=== PATIENT | male | born 1965 | race Hispanic/Latino ===

== ENCOUNTER 2021-06-22 12:13 | Inpatient (IN) | payer OTHER ==
--- NOTE | 2021-06-20 21:00 | NUR ---
Admission and physical assement completed see inteventions. Armenian speaking only, writter able to translate.Patient alert and oriented x 3. Pt currently denies any pain or discomfort, but would like to take robutussin. Denies any further needs.Plan of care reviewed, oriented to room and call light system. Bedside table and call light within reach.
[~2021-06-22] VITALS: Ht 170.2 cm; Wt 79.0 kg
--- NOTE | 2021-06-22 12:20 | NUR ---
TO ROOM FOR TRIAGE
--- NOTE | 2021-06-22 12:46 | NUR ---
PATIENT RESTING IN SEMI LAMA POSTION,BED LOW,CALL GAMING IN REACH
--- NOTE | 2021-06-22 13:20 | NUR ---
noted o2 sats are remaining in low 90's. RT called for ABG.
[2021-06-22 14:36] LABS: HEMATOCRIT 36.6 % (39.0-50.0); HEMOGLOBIN 12.5 g/dl (14.0-18.0); IMMATURE GRANULOCYTES 0.3 % (0.0-5.0); MEAN CELL VOLUME 86.1 fL CALC (80.0-100.0); MEAN CORPUSCULAR HGB 29.4 pG CALC (26.0-32.0); MEAN CORPUSCULAR HGB CONC 34.2 g/dL CAL (32.0-36.0); NEUT# 6.11 thou/uL (1.82-7.42); RED BLOOD COUNT 4.25 mill/uL (4.70-6.10); RED CELL DISTRI WIDTH 12.9 % (11.5-15.5)
[2021-06-22 15:11] LABS: ALBUMIN 3.5 g/dL (3.2-5.0); ALKALINE PHOSPHATASE 50 u/l (38-126); ANION GAP 7 (6-22 (CALC)); BILIRUBIN, TOTAL 0.7 mg/dL (0.0-1.4); BUN 9 mg/dL (9-20); BUN/CREATININE RATIO 19 (12-20 (CALC)); CARBON DIOXIDE 26 mmol/l (22-30); CHLORIDE 100 mmol/l (95-108); CREATININE 0.5 mg/dL (0.7-1.3); GFR > 60 ML/MIN (>=60 (CALC)); GFR FOR AFR.AMER. > 60 ML/MIN (>=60 (CALC)); POTASSIUM 3.5 mmol/l (3.5-5.1); SGOT/AST 159 u/l (17-59); SODIUM 129 mmol/l (137-146); TOTAL PROTEIN 7.5 g/dL (6.3-8.2)
--- NOTE | 2021-06-22 15:11 | NUR ---
PATIENT RESTING QUIETLY.
--- NOTE | 2021-06-22 16:30 | NUR ---
RESTING QUIETLY. CALL GAMING IN REACH
--- NOTE | 2021-06-22 17:30 | NUR ---
AWAITING ADMISSION. CALL GAMING IN REACH.
--- NOTE | 2021-06-22 18:31 | NUR ---
NO C/O. CALL GAMING AVAILABLE. BED IN LOW POSITION.
--- NOTE | 2021-06-22 18:50 | NUR ---
Report received from Elio Bullock RN
--- NOTE | 2021-06-22 19:10 | NUR ---
RECIVED REPORT FROM KYRIE WHITE. ASSUMED CARE OF PATIENT. ANTIBIOTIC COMPLETED. Reassessment of patient completed. No distress noted.
--- NOTE | 2021-06-22 20:04 | NUR ---
Report received from Mark Campbell Rn
--- NOTE | 2021-06-22 20:09 | NUR ---
Admission Note Report Given to: CINDY PULIDO Transported by: Wheelchair X Stretcher Transported with: X Nurse Transporter X Patent IV O2 X Eye Technician Location: ICU X [facility]
--- NOTE | 2021-06-22 21:50 | NUR ---
Patient arrived on floor accompanied by A Tien. Pt has a new IV (20 G LAC) started by transporter. IV antibiotics hung, but never given.
[2021-06-22 21:51] VITALS: BP 141/84
--- NOTE | 2021-06-22 22:28 | NUR ---
antibiotic begin at this time, expected to complete at 2330
[2021-06-23] VITALS: BP 147/85
--- NOTE | 2021-06-23 | NUR ---
Patient resting comfortably on 2L via nasal cannula, reading 96%
[2021-06-23 04:00] VITALS: BP 136/82
[2021-06-23 05:32] LABS: ALBUMIN 3.1 g/dL (3.2-5.0); ALKALINE PHOSPHATASE 46 u/l (38-126); ANION GAP 10 (6-22 (CALC)); BILIRUBIN, TOTAL 0.6 mg/dL (0.0-1.4); BUN 12 mg/dL (9-20); BUN/CREATININE RATIO 27 (12-20 (CALC)); C-REACTIVE PROTEIN 6.3 mg/dL (0-0.9); CARBON DIOXIDE 23 mmol/l (22-30); CHLORIDE 104 mmol/l (95-108); CREATININE 0.5 mg/dL (0.7-1.3); GFR > 60 ML/MIN (>=60 (CALC)); GFR FOR AFR.AMER. > 60 ML/MIN (>=60 (CALC)); SGOT/AST 127 u/l (17-59); SODIUM 132 mmol/l (137-146); TOTAL PROTEIN 6.8 g/dL (6.3-8.2)
--- NOTE | 2021-06-23 05:58 | NUR ---
Patient increased delivery of oxygen to 4L via NC from 2L
[2021-06-23 07:11] LABS: HEMATOCRIT 38.5 % (39.0-50.0); HEMOGLOBIN 12.8 g/dl (14.0-18.0); IMMATURE GRANULOCYTES 0.5 % (0.0-5.0); MEAN CELL VOLUME 87.3 fL CALC (80.0-100.0); MEAN CORPUSCULAR HGB CONC 33.2 g/dL CAL (32.0-36.0); NEUT# 3.31 thou/uL (1.82-7.42); RED BLOOD COUNT 4.41 mill/uL (4.70-6.10); RED CELL DISTRI WIDTH 12.9 % (11.5-15.5)
--- NOTE | 2021-06-23 08:00 | NUR ---
PT SITTING UP IN BED. PT IS MACEDONIAN SPEAKING. PT ALERT AND ORIENTED X4 PT DENIES PAIN OR DISCOMFORT. VS AND ASSESSMENT COMPLETE. PT AMBULATES TO THE BATHROOM WITHOUT ASSISTANCE. LUNGS DIMINISHED. BREATHS EVEN AND UNLABORED. BOWEL SOUNDS ACTIVE. PERIPHERAL PULSES PALPABLE. IV INTACT AND PATENT. PT WILL CONTINUE O2 THERAPY. SAFETY PRECAUTIONS ARE IN PLACE CALL LIGHT WITHIN PT REACH. WILL MONITOR PATIENT CLOSELY
[2021-06-23 12:00] VITALS: BP 119/71
--- NOTE | 2021-06-23 12:00 | NUR ---
PT SLEEPING. NO IMMEDIATE NEEDS AT THIS TIME
[2021-06-23 15:50] VITALS: BP 127/73
--- NOTE | 2021-06-23 17:19 | NUR ---
REPORT GIVEN TO ICU NURSE. ALL QUESTIONS ANSWERED.
--- NOTE | 2021-06-23 17:28 | NUR ---
PT TRANSFERRED TO ICU VIA WHEELCHAIR IN A STABLE CONDITION
[2021-06-23 19:00] VITALS: BP 125/72
--- NOTE | 2021-06-23 20:00 | NUR ---
PATIENT IS SITTING UP IN RECLINER AT THIS TIME WITH O2 OFF-O2 SAT WAS 82% AND O2 REAPPLIED-INCREASED UP TO 10L HIGH FLOW TO GET UP TO 91% SAT. PATIENT IS TONGAN SPEAKING ONLY. REINFORCED WITH PATIENT THE NEED TO LEAVE O2 IN PLACE. EXTENSION TUBING APPLIED TO O2 TUBING. LUNGS ARE CLEAR AT THIS TIME. VS TAKEN AND RECORDED. TELE MONITOR IN PLACE AND READING SR-72 AT TH IS TIME. ROCEPHIN FINISHED AND AZITHRO HUNG VIA LAFT AC SITE. SITE IS HEALTHY AT THIS TIME. PATIENT ON ISOLATION FOR COVID. ENCOURGED USE OF IS Q1H W/A IN REPS OF 10 AND ALSO ENCOURAGED PRONING WHEN POSSIBLE. CALL LIGHT IN REACH. WILL CONT TO [facility].
[2021-06-24] VITALS: BP 116/76
--- NOTE | 2021-06-24 01:00 | NUR ---
PATIENT RESTING IN BED AT THIS TIME WITH O2 VIA NASAL CANNULA IN PLACE AT 6L HIGH FLOW. O2 SAT IS 91& AT THIS TIME. TELE MONITOR IN PLACE-LAST READING SR-65. NO COMPLAINTS AT THIS TIME. CALL LIGHT IN REACH. WILL CONT TO MONITOR.
--- NOTE | 2021-06-24 03:31 | NUR ---
PATIENT RESTING IN BED-O2 SAT ON 6L HIGH FLOW IS ONLY 88%. INCREASED TO O2 12L HIGH FLOW TO MAINTAIN O2 SAT OF 90%. TELE MONITOR IN PLACE. IV SITE TO RAC AND LAC INTACT. HOB IS ELEVATED. CALL LIGHT IN REACH. WILL CONT TO MONITOR.
[2021-06-24 04:00] VITALS: BP 135/75
[2021-06-24 05:30] LABS: HEMOGLOBIN 12.6 g/dl (14.0-18.0); MEAN CELL VOLUME 88.6 fL CALC (80.0-100.0); MEAN CORPUSCULAR HGB 29.4 pG CALC (26.0-32.0); MEAN CORPUSCULAR HGB CONC 33.2 g/dL CAL (32.0-36.0); NEUT# 6.87 thou/uL (1.82-7.42); RED BLOOD COUNT 4.29 mill/uL (4.70-6.10); RED CELL DISTRI WIDTH 12.8 % (11.5-15.5)
[2021-06-24 05:47] LABS: ALKALINE PHOSPHATASE 43 u/l (38-126); ANION GAP 11 (6-22 (CALC)); BILIRUBIN, TOTAL 0.6 mg/dL (0.0-1.4); BUN 20 mg/dL (9-20); BUN/CREATININE RATIO 39 (12-20 (CALC)); CARBON DIOXIDE 22 mmol/l (22-30); CHLORIDE 107 mmol/l (95-108); CREATININE 0.5 mg/dL (0.7-1.3); GFR > 60 ML/MIN (>=60 (CALC)); GFR FOR AFR.AMER. > 60 ML/MIN (>=60 (CALC)); SGOT/AST 85 u/l (17-59); SODIUM 136 mmol/l (137-146); TOTAL PROTEIN 6.6 g/dL (6.3-8.2)
[2021-06-24 06:19] LABS: IMMATURE GRANULOCYTES 0.6 % (0.0-5.0)
[2021-06-24 08:04] VITALS: BP 119/69
--- NOTE | 2021-06-24 08:04 | NUR ---
PT ALERT AND ORIENTED. COVID+ ON 13L OF HF NC. VITALS AND ASSESSMENT COMPLETED. PT S1 AND S2 HEARD UPON ASCULTATION. LUNGS CLEAR/DIMINISHED. BOWELS ACTIVE IN ALL 4 QUADS. PT IV PATENT AND HEALTHY X2. PT SKIN WARM AND DRY. PEDAL PULSES STRONG BILATERALLY. NO PAIN INDICATED.
--- NOTE | 2021-06-24 09:00 | NUR ---
PT IN RECLINER. NO DISTRESS NOTED. CALL LIGHT WITHIN REACH.
--- NOTE | 2021-06-24 11:18 | NUR ---
AT BEDSIDE DISCUSSING POC.
--- NOTE | 2021-06-24 11:21 | NUR ---
PT UP IN CHAIR. NO DISTRESS NOTED. CALL LIGHT WITHIN REACH.
[2021-06-24 12:29] VITALS: BP 116/72
--- NOTE | 2021-06-24 14:23 | NUR ---
PT UP IN CHAIR. NO DISTRESS NOTED. CALL LIGHT WITHIN REACH.
--- NOTE | 2021-06-24 15:00 | NUR ---
TITRATED PT DOWN TO 12L OF O2. PTS O2 AT 95-96%. NO DISTRESS NOTED. CALL LIGHT WITHIN REACH.
--- NOTE | 2021-06-24 15:32 | NUR ---
PT IN CHAIR. ASKED IF HE WANTED TO GET IN BED AND HE DENIED. NO DISTRESS NOTED. CALL LIGHT WITHIN REACH.
[2021-06-24 16:55] VITALS: BP 130/78
[2021-06-24 19:00] VITALS: BP 123/64
--- NOTE | 2021-06-24 19:47 | NUR ---
PATIENT RESTING IN CHAIR AT THIS ITME-AWAKE ALERT AND ORIENTEDX3. O2 VIA NC HIGH FLOW 12L IN PLACE. O2 SAT IS 95%. DECREASED HIGH FLOW TO 10 AND WILL CONT TO MONITOR. LUNGS ARE CLEAR BUT DIMINISHED. TELE MONITOR IN PLACE-LAST READING SR-70'S. SALINE LOCKS INTACT TO BOTH LEFT AND RIGHT AC'S. UP TO BR TO VOID-DENIES ANY DIFFICULTY. ABD IS SOFT WITH BS+. NO PERIPHERAL EDEMA. PULSES ARE PALPABLE. ON ISOLATION FOR COVID. ENCOURAGED USE OF IS Q1H WHILE AWAKE IN REPS OF 10. ENCOURAGED PRONING WHEN POSSIBLE. SAFETY PRECAUTIONS REINFORCED. CALL LIGHT IN REACH, WILL CONT TO MONITOR.
[2021-06-25] VITALS: BP 123/73
--- NOTE | 2021-06-25 00:57 | NUR ---
PATIENT REMAINS UP IN THE CHAIR WITH O2 VIA NC IN PLACE AT 10L HIGHFLOW. O2 SAT IS 91% AT THIS TIME. PATIENT DID FINALLY EAT ALL OF HIS DINNER. TELE MONITOR IN PLACE WITH LAST READING BEING SR-64. PATIENT WITH NO COMPLAINTS AT THIS TIME. CALL LIGHT IN REACH. WILL CONT TO MONITOR.
--- NOTE | 2021-06-25 02:22 | NUR ---
PATIENT RESTING IN BED AT THIS TIME WITH O2 VIA NASAL CANNULA IN PLACE AT 10L HIGH FLOW. O2 SAT IS 94% AT THIS TIME. WILL CONT TO MONITOR.
[2021-06-25 04:00] VITALS: BP 146/73
--- NOTE | 2021-06-25 04:47 | NUR ---
PATIENT RESTING IN BED AT TH IS TIME WITH O2 NC IN PLACE AT 10L HIGH FLOW-O2 SAT IS 93% AT THIS TIME. TELE MONITOR IN PLACE WITH LAST READING SR-82. CALL LIGHT IN REACH. WILL CONT TO MONITOR.
[2021-06-25 05:20] LABS: HEMATOCRIT 39.6 % (39.0-50.0); HEMOGLOBIN 12.9 g/dl (14.0-18.0); IMMATURE GRANULOCYTES 1.6 % (0.0-5.0); MEAN CELL VOLUME 89.6 fL CALC (80.0-100.0); MEAN CORPUSCULAR HGB 29.2 pG CALC (26.0-32.0); MEAN CORPUSCULAR HGB CONC 32.6 g/dL CAL (32.0-36.0); NEUT# 6.21 thou/uL (1.82-7.42); RED BLOOD COUNT 4.42 mill/uL (4.70-6.10); RED CELL DISTRI WIDTH 12.9 % (11.5-15.5)
[2021-06-25 05:46] LABS: ALBUMIN 3.3 g/dL (3.2-5.0); ALKALINE PHOSPHATASE 59 u/l (38-126); ANION GAP 10 (6-22 (CALC)); BILIRUBIN, TOTAL 0.5 mg/dL (0.0-1.4); BUN 22 mg/dL (9-20); BUN/CREATININE RATIO 38 (12-20 (CALC)); CARBON DIOXIDE 24 mmol/l (22-30); CHLORIDE 107 mmol/l (95-108); CREATININE 0.6 mg/dL (0.7-1.3); GFR > 60 ML/MIN (>=60 (CALC)); GFR FOR AFR.AMER. > 60 ML/MIN (>=60 (CALC)); POTASSIUM 4.2 mmol/l (3.5-5.1); SODIUM 136 mmol/l (137-146); TOTAL PROTEIN 7.1 g/dL (6.3-8.2)
[2021-06-25 05:50] LABS: SGOT/AST 159 u/l (17-59)
[2021-06-25 06:52] LABS: C-REACTIVE PROTEIN 2.3 mg/dL (0-0.9)
[2021-06-25 07:27] VITALS: BP 130/78
--- NOTE | 2021-06-25 07:27 | NUR ---
PT AWAKE UPON ENTERING ROOM IN THE CHAIR. PT IS ALERT AND ORIENTED. COVID+ ON 11L OF 02. VITALS AND ASSESSMENT COMPLETED. S1 AND S2 HEARD UPON ASCULTATION. BOWELS ACTIVE IN ALL 4 QUADRANTS. SKIN WARM AND DRY. PEDAL PULSES STRONG BILATERALLY. IV PATENT AND HEALTHY. NO PAIN INDICATED BY PT. CALL LIGHT WITHIN REACH.
--- NOTE | 2021-06-25 11:39 | NUR ---
PT IN CHAIR. NO DISTRESS NOTED. CALL LIGHT WITHIN REACH.
[2021-06-25 13:01] VITALS: BP 118/70
--- NOTE | 2021-06-25 14:45 | NUR ---
PT SITTING IN CHAIR. NO DISTRESS NOTED. CALL LIGHT WITHIN REACH.
[2021-06-25 17:37] VITALS: BP 126/72
--- NOTE | 2021-06-25 19:30 | NUR ---
PATIENT SITTING UP IN THE RECLINER WITH HIGH FLOW O2 IN PLACE AT 10L VIA NASAL CANNULA. AWAKE ALERT AND ORIENTEDX3. KYRGYZ SPEAKING ONLY. WAS UP TO THE BR TO VOID AND HAD BM. O2 SAT IS AT 94% AT THIS TIME. TELE MONITOR IN PLACE-LAST READING WAS WAS SR-90'S. PATIENT WITH SALINE LOCK TO BOTH LAC AND RAC-SITE REMAIN HEALTHY AT THIS TIME. PATIENT IS ON ISOLATION FOR COVID. ENCOURAGED U SE OF IS Q1H WHILE AWAKE IN REPS OF 10. ENCOURAGED TO PRONE WHEN POSSIBLE. APPETITE IS GOOD. PATIENT DOES TAKE HIS TIME WHEN EATING. SAFETY PRECAUTIONS REINFORCED. CALL LIGHT IN REACH. WILL CONT TO MONITOR.
[2021-06-25 20:35] VITALS: BP 118/64
[2021-06-26 00:25] VITALS: BP 141/81
--- NOTE | 2021-06-26 01:45 | NUR ---
PATIENT RESTING IN BED AT THIS TIME WITH O2 VIA NC IN PLACE AT 10 HIGH FLOW WITH O2 SAT OF 87-INCREASED HIGH FLOW TO 12L. WILL CONT TO MONITOR. TELE MONITOR IN PLACE-LAST READING SR-60. CALL LIGHT IN REACH. WILL CONT TO MONITOR.
--- NOTE | 2021-06-26 04:30 | NUR ---
PATIENT UP AND DOWN FROM BED TO CHAIR MOST OF THE NIGHT. SLEPT LITTLE. O2 VIA NC IN PLACE AT 15L HIGH FLOW-O2 SAT WAS 93%. TELE MONITOR IN PLACE-LAST READING WAS SB-53. CALL LIGHT IN REACH. WILL CONT TO MONITOR.
[2021-06-26 05:25] VITALS: BP 138/79
[2021-06-26 05:55] LABS: HEMATOCRIT 37.7 % (39.0-50.0); HEMOGLOBIN 12.2 g/dl (14.0-18.0); MEAN CELL VOLUME 89.8 fL CALC (80.0-100.0); MEAN CORPUSCULAR HGB CONC 32.4 g/dL CAL (32.0-36.0); RED BLOOD COUNT 4.2 mill/uL (4.70-6.10); RED CELL DISTRI WIDTH 12.9 % (11.5-15.5)
[2021-06-26 06:05] LABS: ALBUMIN 2.9 g/dL (3.2-5.0); ALKALINE PHOSPHATASE 58 u/l (38-126); ANION GAP 9 (6-22 (CALC)); BILIRUBIN, TOTAL 0.5 mg/dL (0.0-1.4); BUN 20 mg/dL (9-20); BUN/CREATININE RATIO 39 (12-20 (CALC)); CARBON DIOXIDE 25 mmol/l (22-30); CHLORIDE 105 mmol/l (95-108); CREATININE 0.5 mg/dL (0.7-1.3); GFR > 60 ML/MIN (>=60 (CALC)); GFR FOR AFR.AMER. > 60 ML/MIN (>=60 (CALC)); POTASSIUM 4.3 mmol/l (3.5-5.1); SGOT/AST 175 u/l (17-59); SODIUM 134 mmol/l (137-146); TOTAL PROTEIN 6.5 g/dL (6.3-8.2)
[2021-06-26 07:09] VITALS: BP 120/73
--- NOTE | 2021-06-26 07:09 | NUR ---
PT IN CHAIR WHEN ENTERED ROOM. ALERT AND ORIENTED. COVID+ ON 15L HF NC. VITALS AND ASSESSMENT COMPLETED. S1 AND S2 HEARD UPON ASCULTATION. BOWELS ACTIVE IN ALL 4 QUADRANTS. SKIN WARM AND DRY. PEDAL PULSES BILATERALLY STRONG. IV PATENT AND HEALTHY. NO DISTRESS NOTED. CALL LIGHT WITHIN REACH.
[2021-06-26 10:50] VITALS: BP 118/63
--- NOTE | 2021-06-26 11:30 | NUR ---
DR. CHAVES AND Adrian LOVE AT BEDSIDE DISCUSSING POC.
--- NOTE | 2021-06-26 11:43 | NUR ---
PT UP IN CHAIR. GAVE PT AN INCENTIVE SPIROMETER, EXPLAINED HOW TO USE. PT DID WELL. NO DISTRESS NOTED. CALL LIGHT WITHIN REACH.
--- NOTE | 2021-06-26 14:27 | NUR ---
PT SITTING UP IN CHAIR. NO DISTRESS NOTED. CALL LIGHT WITHIN REACH.
[2021-06-26 15:05] VITALS: BP 129/74
--- NOTE | 2021-06-26 15:37 | NUR ---
Patient has been screened for possible PT intervention today and patient will definitely benefit from PT participation to help improve functional weight bearing ADL capability as patient prepares for discharge.
--- NOTE | 2021-06-26 16:00 | NUR ---
PT IN CHAIR NO DISTRESS NOTED. CALL LIGHT WITHIN REACH.
[2021-06-26 18:46] VITALS: BP 112/69
[2021-06-27 00:08] VITALS: BP 119/70
--- NOTE | 2021-06-27 01:45 | NUR ---
PATIENT SITTING IN HIGH FOWLERS WIDE AWAKE. DENIES ANY NEEDS, DENIES ANY NEED FOR A SLEEP AIDE. PATIENT IN NO APPARENT DISTRESS. CURRENTLY 94% ON 15L HF. CALL LIGHT AND BEDSIDE TABLE WITHIN REACH.
--- NOTE | 2021-06-27 03:58 | NUR ---
PATIENT RESTING COMOFRTABLY. IN NO APPARENT DISTREES. DENIES ANY CURRENT NEEDS. CALL LIGHT AND BEDSIDE TABLE WITHIN REACH.
[2021-06-27 04:49] VITALS: BP 144/81
[2021-06-27 06:17] LABS: HEMATOCRIT 38.3 % (39.0-50.0); HEMOGLOBIN 12.6 g/dl (14.0-18.0); IMMATURE GRANULOCYTES 4.6 % (0.0-5.0); MEAN CELL VOLUME 89.5 fL CALC (80.0-100.0); MEAN CORPUSCULAR HGB 29.4 pG CALC (26.0-32.0); MEAN CORPUSCULAR HGB CONC 32.9 g/dL CAL (32.0-36.0); NEUT# 6.86 thou/uL (1.82-7.42); RED BLOOD COUNT 4.28 mill/uL (4.70-6.10)
[2021-06-27 06:52] LABS: ALKALINE PHOSPHATASE 57 u/l (38-126); ANION GAP 9 (6-22 (CALC)); BILIRUBIN, TOTAL 0.5 mg/dL (0.0-1.4); BUN 20 mg/dL (9-20); BUN/CREATININE RATIO 33 (12-20 (CALC)); C-REACTIVE PROTEIN 2.3 mg/dL (0-0.9); CARBON DIOXIDE 24 mmol/l (22-30); CHLORIDE 105 mmol/l (95-108); CREATININE 0.6 mg/dL (0.7-1.3); GFR > 60 ML/MIN (>=60 (CALC)); GFR FOR AFR.AMER. > 60 ML/MIN (>=60 (CALC)); POTASSIUM 4.3 mmol/l (3.5-5.1); SGOT/AST 70 u/l (17-59); SODIUM 134 mmol/l (137-146); TOTAL PROTEIN 6.5 g/dL (6.3-8.2)
--- NOTE | 2021-06-27 07:00 | NUR ---
RECIEVED REPORT FROM CINDY PULIDO
[2021-06-27 08:14] VITALS: BP 111/68
--- NOTE | 2021-06-27 08:14 | NUR ---
PT RESTING IN CHAIR UPON ENTERING ROOM. PT IS A/O X3, MOSTLY LIBYAN SPEAKING. ASESSMENT AND VITALS COMPLETED. RESPIRATIONS ARE EVEN AND UNLABORED WITH NO DISTRESS NOTED. 92% ON 10L HF NC. LUNG SOUNDS ARE DIMINISHED.HEART RHYTHM NORMAL, TELE IN PLACE. BOWEL SOUNDS ARE ACTIVE. #20G LAC FLUSHED, SITE APPEARS HEALTHY AND PATENT. #22G RAC OCCULDED, REMOVED WITH CATH STILL INTACT.SKIN INTACT. PT DENIES OF ANY PAINS OR DISCOMFORTS AT THIS TIME.AIR/CONTACT PRECAUTIONS. ALL SAFETY PRECAUTIONS ARE IN PLACE WITH CALL LIGHT IN REACH.
--- NOTE | 2021-06-27 08:27 | NUR ---
OT SCREEN COMPLETE: OT SERVICES NOT DEEMED NECESSARY AT THIS TIME
--- NOTE | 2021-06-27 10:37 | NUR ---
DR CHAVES AND NEISHA,ANKJ AT BEDSIDE
[2021-06-27 10:45] VITALS: BP 96/59
--- NOTE | 2021-06-27 12:37 | NUR ---
PT SITTING UP IN CHAIR EATING LUNCH. RESIRATIONS ARE EVEN AND UNLABORED WITH NO DISTRESS NOTED, 92% ON 12L HIGH FLOW NC. #20G LAC REMAINS IN PLACE. TELE MONITORING IN PLACE. PT DNEIES OF ANY PAINS OR DISCOMFORTS. PT THANKFUL OF OVERALL CARE BEING PROVIDED. ALL SAFETY PRECAUTIONS ARE IN PLACE WITH CALL LIGHT IN REACH. WILL CONTINUE TO MONITOR.
[2021-06-27 14:40] VITALS: BP 117/69
--- NOTE | 2021-06-27 16:07 | NUR ---
PT SITTING UP IN CHAIR RESPIRATIONS ARE EVEN AND UNLABORED WITH NO DISTRESS NOTED.96% ON 8L HIGH FLOW NC. TELE MONITORING IN PLACE. NEW #22G IN LFA STARTED. #20G LAC REMOVED WITH CATH STILL INTACT. PT DENIES OF ANY PAINS OR DISCOMFORTS AT THIS TIME. ALL SAFETY PRECAUTIONS ARE IN PLACE WITH CALL LIGHT IN REACH. WILL CONTINUE TO MONITOR.
[2021-06-27 19:00] VITALS: BP 112/65
--- NOTE | 2021-06-27 19:05 | NUR ---
REPORT RECIEVED FROM Dagmar VASQUEZ LPN
--- NOTE | 2021-06-27 21:15 | NUR ---
AIR CONTACT ISOLATIONS IN PLACE. PT IS A/O X3. ASSESSMENT COMPLETED O2 95% ON ROOM AIR WITH 6L HF NC. RESPIRATIONS ARE EVEN AND UNLABORED. LUNG SOUNDS ARE CLEAR. PT. HEART RHYTHM NORMAL WITH TELE IN PLACE, SB PER ER MONITORING. BOWEL SOUNDS ARE ACTIVE. #20G LAC SALINE LOCK, SITE REMAINS HEALTHY AND PATENT. CALL LIGGHT AND BEDSIDE TABLE WITHIN REACH.
[2021-06-28] VITALS: BP 129/70
--- NOTE | 2021-06-28 00:30 | NUR ---
PATIENT UP TO THE RESTROOM AT THIS TIME, PT STATES HE FEELS A WHOLE LOT BETTER THAN HE HAS AND FEELS LIKE HE HAS SO MUCH MORE ENERGY.
[2021-06-28 04:00] VITALS: BP 137/78
[2021-06-28 05:59] LABS: HEMATOCRIT 37.8 % (39.0-50.0); HEMOGLOBIN 12.4 g/dl (14.0-18.0); IMMATURE GRANULOCYTES 4.6 % (0.0-5.0); MEAN CELL VOLUME 88.9 fL CALC (80.0-100.0); MEAN CORPUSCULAR HGB 29.2 pG CALC (26.0-32.0); MEAN CORPUSCULAR HGB CONC 32.8 g/dL CAL (32.0-36.0); NEUT# 5.64 thou/uL (1.82-7.42); RED BLOOD COUNT 4.25 mill/uL (4.70-6.10); RED CELL DISTRI WIDTH 12.9 % (11.5-15.5)
[2021-06-28 06:17] LABS: ALBUMIN 2.9 g/dL (3.2-5.0); ALKALINE PHOSPHATASE 58 u/l (38-126); ANION GAP 8 (6-22 (CALC)); BILIRUBIN, TOTAL 0.5 mg/dL (0.0-1.4); BUN 14 mg/dL (9-20); BUN/CREATININE RATIO 28 (12-20 (CALC)); CARBON DIOXIDE 24 mmol/l (22-30); CHLORIDE 104 mmol/l (95-108); CREATININE 0.5 mg/dL (0.7-1.3); GFR > 60 ML/MIN (>=60 (CALC)); GFR FOR AFR.AMER. > 60 ML/MIN (>=60 (CALC)); POTASSIUM 4.3 mmol/l (3.5-5.1); SGOT/AST 38 u/l (17-59); SODIUM 132 mmol/l (137-146); TOTAL PROTEIN 6.4 g/dL (6.3-8.2)
--- NOTE | 2021-06-28 08:15 | NUR ---
PATIENT AWAKE AND UP TO BEDSIDE CHAIR. PT ALERT AND ORIENTED. PT DENIES ANY IMMEDIATE NEEDS AT THIS TIME. VS AND ASSESSMENT COMPLETE. LUNGS ARE DIMINISHED. BREATHS ARE EVEN AND UNLABORED. WILL CONTINUE O2 THERAPY, ABDOMEN SOFT AND NONTENDER. PERIPHERAL PULSES PALPABLE. IV INTACT AND PATENT. IV FLUSHED AND SALINE LOCKED. SAFETY PRECAUTIONS IN PLACE. CALL LIGHT WITHIN PATIENTS REACH. WILL MONITOR PATIENT CLOSELY
[2021-06-28 10:30] VITALS: BP 111/66
--- NOTE | 2021-06-28 12:00 | NUR ---
PT UP TO BEDSIDE CHAIR. PT DENIES ANY PAIN SOB OR DISCOMFORT AT THIS TIME. WILL CONTINUE TO MONITOR PT
[2021-06-28 15:00] VITALS: BP 115/71
--- NOTE | 2021-06-28 16:00 | NUR ---
PT UP TO BEDSIDE CHAIR. PT DENIES ANY NEEDS AT THIS TIME. SAFETY PRECAUTIONS ARE IN PLACE AND CALL LIGHT WITHIN REACH. WILL CONTINUE TO MONITOR PT
[2021-06-28 19:30] VITALS: BP 112/67
--- NOTE | 2021-06-28 20:45 | NUR ---
PATIENT ALERT AND ORIENTED. ITALIAN SPEAKING. ASSESSMENT COMPLETE. NO SIGNS OF PAIN OR DISTRESS NOTED. CALL LIGHT AN BELONGINGS REMAIN IN REACH.
[2021-06-29 00:32] VITALS: BP 131/77
--- NOTE | 2021-06-29 02:41 | NUR ---
RESTING IN BED QUIETLY. NO SIGNS OF PAIN OR DISTRESS NOTED. CALL LIGHT AND BELONGINGS REMAIN IN REACH.
[2021-06-29 05:00] VITALS: BP 137/77
[2021-06-29 05:35] LABS: HEMATOCRIT 37.7 % (39.0-50.0); HEMOGLOBIN 12.3 g/dl (14.0-18.0); IMMATURE GRANULOCYTES 4.6 % (0.0-5.0); MEAN CELL VOLUME 89.5 fL CALC (80.0-100.0); MEAN CORPUSCULAR HGB 29.2 pG CALC (26.0-32.0); MEAN CORPUSCULAR HGB CONC 32.6 g/dL CAL (32.0-36.0); NEUT# 5.92 thou/uL (1.82-7.42); RED BLOOD COUNT 4.21 mill/uL (4.70-6.10); RED CELL DISTRI WIDTH 13.2 % (11.5-15.5)
[2021-06-29 06:15] LABS: ALKALINE PHOSPHATASE 64 u/l (38-126); ANION GAP 9 (6-22 (CALC)); BILIRUBIN, TOTAL 0.4 mg/dL (0.0-1.4); BUN 16 mg/dL (9-20); BUN/CREATININE RATIO 31 (12-20 (CALC)); C-REACTIVE PROTEIN 1.7 mg/dL (0-0.9); CARBON DIOXIDE 24 mmol/l (22-30); CHLORIDE 103 mmol/l (95-108); CREATININE 0.5 mg/dL (0.7-1.3); GFR > 60 ML/MIN (>=60 (CALC)); GFR FOR AFR.AMER. > 60 ML/MIN (>=60 (CALC)); POTASSIUM 4.4 mmol/l (3.5-5.1); SGOT/AST 32 u/l (17-59); SODIUM 132 mmol/l (137-146); TOTAL PROTEIN 6.5 g/dL (6.3-8.2)
--- NOTE | 2021-06-29 07:12 | NUR ---
REPORT FROM SUJEY WHITE. ASSUMED PT CARE.
[2021-06-29 08:00] VITALS: BP 115/72
--- NOTE | 2021-06-29 08:30 | NUR ---
PT NOTED SITTING UP IN CHAIR AT BEDSIDE. ALERT AND ORIENTED. BAHAMIAN SPEAKING. PT DENIES ANY PAIN OR DISCOMFORT. NO APPARENT DISTRESS NOTED. RESPIRATIONS EVEN AND UNLABORED. O2 @ 6L/M VIA NC. PT TOLERATING WELL. NO CURRENT WANTS OR NEEDS. SODIUM METHYLATE OPERATOR IN PLACE. IV SITE APPEARS HEALTHY. CALL LIGHT WITHIN REACH. WILL CONTINUE TO MONITOR.
[2021-06-29 10:41] VITALS: BP 102/57
--- NOTE | 2021-06-29 12:30 | NUR ---
PT SITTING UP IN CHAIR AT BEDSIDE EATING LUNCH. NO APPARENT DISTRESS NOTED. RESPIRATIONS EVEN AND UNLABORED. PT REMAINS ON 4L/M VIA NC SAT 96%. PT DENIES ANY CURRENT WANTS OR NEEDS. CALL LIGHT WITHIN REACH. WILL CONTINUE TO MONITOR.
[2021-06-29 14:30] VITALS: BP 108/62
--- NOTE | 2021-06-29 15:55 | NUR ---
PT NOTED SITTING UP IN CHAIR WATCHING TV. NO APPARENT DISTRESS NOTED. IV SITE APPEARS HEALTHY. AUTOMOBILE CARPETS MOLDER IN PLACE. CALL LIGHT WITHIN REACH. WILL CONTINUE TO MONITOR.
[2021-06-29 19:00] VITALS: BP 113/65
--- NOTE | 2021-06-29 19:30 | NUR ---
PATIENT SITTING IN RECLINER. ALERT AND ORIENTED. NAMIBIAN SPEAKING. ASSESSMENT COMPLETE AT THIS TIME. NO COMPLAINTS OF PAIN OR DISCOMFORT NOTED. CALL LIGHT AND BELONGINGS REMAIN IN REACH.
[2021-06-30] VITALS: BP 120/67
--- NOTE | 2021-06-30 00:16 | NUR ---
PATIENT RECEIVED PRN TYLENOL PER REQUEST FOR GENERALIZED PAIN.
[2021-06-30 04:00] VITALS: BP 136/70
--- NOTE | 2021-06-30 04:42 | NUR ---
PATIENT RECEIVED SCHEDULED MEDICATION. NO SIGNS OF DISTRESS. DENIES PAIN. CALL LIGHT AND BELONGINGS REMAIN IN REACH.
[2021-06-30 05:29] LABS: HEMATOCRIT 40.8 % (39.0-50.0); HEMOGLOBIN 13.3 g/dl (14.0-18.0); IMMATURE GRANULOCYTES 3.8 % (0.0-5.0); MEAN CELL VOLUME 89.3 fL CALC (80.0-100.0); MEAN CORPUSCULAR HGB 29.1 pG CALC (26.0-32.0); MEAN CORPUSCULAR HGB CONC 32.6 g/dL CAL (32.0-36.0); NEUT# 7.59 thou/uL (1.82-7.42); RED BLOOD COUNT 4.57 mill/uL (4.70-6.10); RED CELL DISTRI WIDTH 13.2 % (11.5-15.5)
[2021-06-30 05:54] LABS: ALBUMIN 3.2 g/dL (3.2-5.0); ALKALINE PHOSPHATASE 83 u/l (38-126); ANION GAP 9 (6-22 (CALC)); BILIRUBIN, TOTAL 0.5 mg/dL (0.0-1.4); BUN 20 mg/dL (9-20); BUN/CREATININE RATIO 38 (12-20 (CALC)); CARBON DIOXIDE 28 mmol/l (22-30); CHLORIDE 100 mmol/l (95-108); CREATININE 0.5 mg/dL (0.7-1.3); GFR > 60 ML/MIN (>=60 (CALC)); GFR FOR AFR.AMER. > 60 ML/MIN (>=60 (CALC)); POTASSIUM 4.6 mmol/l (3.5-5.1); SGOT/AST 37 u/l (17-59); SODIUM 132 mmol/l (137-146); TOTAL PROTEIN 6.9 g/dL (6.3-8.2)
--- NOTE | 2021-06-30 08:00 | NUR ---
PT AWAKE, ALERT AND ORIENTED. PT SITTING UP IN BEDSIDE CHAIR. PT DENIES ANY PAIN OR DISCOMFORT AT THIS TIME. LUNGS CLEAR AND DIMINISHED. WILL CONTINUE O2 THERAPY. ADBDOMEN SOFT AND NONTENDER. IV INTACT AND PATENT. PERIPHERAL PULSES PALPABLE. SAFETY MEASURES ARE IN PLACE AND CALL LIGHT WITHIN REACH. WILL MONITOR PT CLOSELY
--- NOTE | 2021-06-30 11:47 | NUR ---
6 MINUTE WALK TEST BEGAN
--- NOTE | 2021-06-30 12:05 | NUR ---
PT SITTING UP IN BEDSIDE CHAIR. O2 REMOVED FOR 6 MINUTE WALK TEST WILL CONTINUE PT CLOSELY
[2021-06-30 12:21] VITALS: BP 105/58
[2021-06-30] MEDS ORDERED: PROTONIX40 M2 PO (13:59)
[2021-06-30] MEDS ORDERED: VENTOLIN HFA108 MCG IN (13:59)
[2021-06-30] MEDS ORDERED: ASPIRIN REGULA325 M1 PO (13:59)
[2021-06-30] MEDS ORDERED: DECADRON2 MG PO (13:59)
--- NOTE | 2021-06-30 15:05 | NUR ---
D/C INSTRUCTIONS GIVEN TO PT IN [place]. EMPHASIZED THE IMPORTANCE OF BEING COMPLIANT WITH MEDICATIONS; ESPECIALLY ASA. PT ENCOURAGED TO RETURN IF NEW OR WORSENING SYMPTOMS OCCUR, IF SOB INCREASES OR IF OVER ALL NOT FEELING WELL, PT VERBALIZED UNDERSTANDING.
--- NOTE | 2021-06-30 16:13 | NUR ---
Discharge instructions given. Patient verbalizes understanding of same. Discharged in stable condition via Wheelchair to Home with staff. All belongings sent with pt. Per walk test completed by A Maldonado RN, pt did not qualify for O2, no supplemental O2 at this time.
== END 2021-06-30 16:13 | disposition home or self-care (01) | DRG 177 ==
LOC: ED 12:13 → ED-I 14:01 → ED 17:03 → MS2 17:04
PROVIDERS: Internal Medicine; Nurse Practitioner; ADMIT Internal Medicine; ATTEND Internal Medicine
PROC: XW033E5 Introduction of Remdesivir Anti-infective into Peripheral Vein, Percutaneous Approach, New Technology Group 5 (ICD-10-PCS; principal; 2021-06-22)
DX: U07.1 COVID-19 (principal); J12.82 Pneumonia due to coronavirus disease 2019; J96.01 Acute respiratory failure with hypoxia; E87.1 Hypo-osmolality and hyponatremia; R74.01 Elevation of levels of liver transaminase levels
CPT/HCPCS: J1650; Q9967